=== PATIENT | female | born 1980 | race Hispanic/Latino ===

== ENCOUNTER 2017-02-17 10:03 | Day surgery (SDC) | payer OTHER ==
[2017-02-17 10:15] VITALS: BMI 33.9
[2017-02-17 11:24] LABS: BASO % 0.5 % (0.0-2.0); EOS % 0.6 % (0.0-4.0); HEMATOCRIT 37.1 % (34.0-47.0); LYMPH # 2.2 K/uL (1.0-4.3); LYMPH % 28.9 % (20.0-40.0); MEAN CELL VOLUME 79.4 fl (81.0-99.0); MEAN CORPUSCULAR HEMOGLOBIN 25.8 pg (27.0-31.0); MEAN CORPUSCULAR HGB CONC 32.5 g/dL (33.0-37.0); MEAN PLATELET VOLUME 8.9 fl (7.2-11.7); MONO # 0.5 K/uL (0.0-0.8); MONO % 6.6 % (0.0-10.0); NEUT # 4.7 K/uL (1.8-7.0); NEUT % 63.4 % (50.0-75.0); RED CELL DISTRIBUTION WIDTH 14.4 % (11.5-14.5); WHITE BLOOD COUNT 7.4 K/uL (4.8-10.8)
[2017-02-17] MEDS ORDERED: Propofol 10 mg/ml Inj (20 ML) ONE ×2 (15:34→18:37)
[2017-02-17] MEDS ORDERED: Midazolam 2 MG/2 ML VIAL ONE (15:35)
[2017-02-17] MEDS ORDERED: Rocuronium 10 mg/ml (5 ml) ONE (15:36)
[2017-02-17] MEDS ORDERED: Lidocaine 1% Inj (20ml) ONE (16:19)
[2017-02-17] MEDS ORDERED: Bupivacaine 0.5% Inj(30mL) ONE (16:20)
[2017-02-17] MEDS ORDERED: Lactated Ringer's 1,000 ML IV ONE ×2 (17:14)
[2017-02-17] MEDS ORDERED: Dexamethasone 4 mg/1 ml ONE (17:49)
[2017-02-17] MEDS ORDERED: Bupivacaine 0.5% 50 ML IJ ONE (17:50)
[2017-02-17] MEDS ORDERED: Neostigmine Methylsulfate 2 MG/2 ML ML IV ONE (18:31)
[2017-02-17] MEDS ORDERED: Neostigmine Methylsulfate 3mg/3ml Syringe IV ONE (18:31)
[2017-02-17] MEDS ORDERED: Oxycodone/Acetaminophen 5/325 mg Tab PO PRN (18:55)
[2017-02-17] MEDS ORDERED: Lactated Ringer's 1,000 ML IV SCH (20:11)
[2017-02-17 20:24] VITALS: RESP 20
[2017-02-17 21:37] VITALS: BP 141/80; PULSE 98; TEMP 99.7; O2SAT 98
--- NOTE | 2017-02-18 22:50 | OP ---
PROCEDURE DATE: 02/17/2017 SURGEON: Aron Read MD [employer] ATTENDANT: Lino Mai MD, and Oxana Puckett PA-C ANESTHESIA: General endotracheal. ESTIMATED BLOOD LOSS: Minimal. PREOPERATIVE DIAGNOSES: Dysmenorrhea, dyspareunia, pelvic pain, bladder pain, pelvic endometriosis. POSTOPERATIVE DIAGNOSES: Dysmenorrhea, dyspareunia, pelvic pain, bladder pain, pelvic endometriosis stage II to III and pelvic adhesions. PROCEDURE PERFORMED: Cystoscopy with bilateral ureteral catheterization, retrograde injection of IC green into the right and left ureter, diagnostic hysteroscopy, laparoscopy, robotic [place]ilia excision of endometriosis, ovariolysis, bilateral ureterolysis, vaporization of endometriosis, and to be dictated separately by Dr. Lino Mai is a lysis of adhesions. SAMPLES: Multiple samples of endometriosis containing tissue sent to pathology. BRIEF HISTORY: The patient is a 36-year-old with a history of dysmenorrhea, dyspareunia, pelvic pain, and bladder pain. The patient had a history of multiple abdominal surgery including 3 operations for bariatric surgery and a laparoscopy as well for endometriosis. She had persistent symptoms, and she also had immunological findings suggestive of endometriosis. Prior to the surgery, the patient was counseled with regards to the risks and benefits of the procedure. We reviewed the likelihood of the procedure in identifying the causes of problem and the likelihood of successful outcome, and alternative modalities. Given the complicated nature of the surgery and the complicated patient's history of multiple prior surgery, the patient understood there was risk of bleeding, hemorrhaging, bowel and bladder injury, and injury to the urethra. She also understood that she will require a ureteral stenting to identify the ureter to facilitate the surgery with the robotic procedure. DESCRIPTION OF PROCEDURE: After obtaining the patient's consent, the patient was taken to the OR, and the procedure was begun. Intravenous catheter was placed and antibiotics were administered. Satisfactory anesthesia was induced, and the patient was placed in dorsal lithotomy position after adequate padding was placed in all areas prone to pressure. The external genitalia and abdomen was thoroughly prepped and draped in a standard fashion. A time-out was performed. At this point, the cystoscope was inserted into the bladder under direct vision. A pancystoscopy was performed and attention was paid to both ureteral orifices which were in normal anatomical position. The left ureteral orifice was then catheterized with a [place] open-ended urethral catheter, demetris solution of ICG was then injected for a total of 4 mL into the left distal ureter. At this point, the ureteral catheter was removed. Attention was then to the right ureteral orifice at which point a ureteral catheter was advanced to the level of the right distal ureter. An additional 4 mL of IC green were then injected into the right ureter. The ureteral catheter was then removed. The bladder was inspected and noted to be free of tumors, stones, or bleeding sources. A small amount of cystitis cystica was noted at the level of the introitus. The cystoscope was then removed, and a 16-[place] King catheter was then placed. At this point, attention was in the vaginal area, where a speculum was placed in the vagina. The anterior lip of the cervix was grasped. The uterus was gently dilated, and a hysteroscope was inserted into the uterine cavity which was normal in size and there was no evidence of polyps or fibroids. Both ureteral ostia were visualized. At this point, after placing a Valtchev uterine manipulator in the uterus,attention was on the abdomen. An incision was made below the umbilicus with a standard pen laparoscopy technique, and the abdominal cavity was entered in a blunt fashion with extreme care not to injure any underlying organ or bowel. At this point a trocar was inserted into the abdomen and insufflated. After insufflating the abdominal cavity, the pelvic was visualized and three additional trocars were inserted, left upper quadrant, left mid quadrant, and right upper quadrant. At this point, the da Ana Lilia robot Xi was brought onto the field. The robot was targeted and docked. The pelvis revealed presence of adhesions involving the descending colon which was attached to the left pelvic side wall. Dr. Lino Mai from General Surgery was called in to take down these adhesions, and he did so and he will dictate separately. There was evidence of endometriosis implant, both in the left peritoneal wall and the ovary overlying the ureter, and there was also evidence of endometriosis on the right ovarian fossa and on the posterior aspect of the cervix and the anterior rectal fold. At this point, attention was on the left side where the left ovary was elevated, and a small area of endometriosis was noticed on the left ovary and it was vaporized since it was very superficial. IC green technology was used to identified the left ureter. At this point, the peritoneum was grabbed and incised, and the retroperitoneal space was entered. A progressive dissection was performed lateralizing the ureter in step by step fashion, and once the ureter was lateralized with great preservation of all the vessel, an area of peritoneum was excised containing what appeared to endometriosis tissue. The peritoneum appeared greatly inflamed and thickened. Additionally, at this point, attention was back on the of the uterus in the posterior cervical aspect by the rectovaginal area. An area of endometriosis was identified right at the level of the rectum. This was excised and taken out without injuring the rectum itself and sent to pathology. At this point, attention was on the right side of the pelvis where similarly the ovary was elevated. The retroperitoneum was entered and the ureter was identified utilizing fluorescent technology and lateralized and an area of peritoneum was excised and sent to pathology. At this point, the posterior aspect of the cervix and the uterus which appeared to be greatly inflamed was vaporized progressively utilizing bipolar technology. At this point, the pelvis was extensively irrigated. All the organs appeared to be in excellent shape. There was no damage to the bowel. The robot was undocked. The instruments were removed. The incision was closed in layers with extreme care to avoid the underlying bowel using #0 PDS for the fascia, and 4-0 Monocryl for the skin. At the end of the procedure, all the instrument counts were correct. The patient was taken to recovery room in excellent condition. Aron Read MD [facility]
--- NOTE | 2017-02-28 09:47 | PCM.OP ---
Operative Report - Operative Report Date of Surgery/Procedure: 02/17/17 Time of Surgery/Procedure: 08:00 Surgeon: Dr. Lino Mai Cvor Nurse: Dr. Aron Read Anesthesia/Sedation: general/Dr. Odonnell Pre-Operative Diagnosis: abdominal pain and endometriosis Post-Operative Diagnosis: Abdominal pain and endometriosis with tariq-rectal involvement Indication for Surgery: same Operative Findings: sigmoid adhesions and tariq-rectal endometriosis Procedure/Operation Description: 1-Lysis of sigmoid colon. 2-Excision of tariq- rectal endometriosis. Brief Hsitroy: This 36 year old woman had surgery via the robot by Dr. Aron Read when he encounted adhesions in the sigoid colon and a lesion on the tariq-rectal wall. Intraoperative consutation by general surgery was obtained. Description of the Procedure: Dr. Roro quispe already initiated the robotic proecdure (separate dictation Dr. Read). After taking control of the robotic console the adhesions to the sigmoid colon were lysed using blunt and sharp dissection with the aid of electrocautery. Once the sigmoid colon was lysed the tariq-rectal lesion could be evaluated clearly. Using blunt and sharp dissection with the aid of electrocautery the rectal lesion was incised circumferentially with a small margin of normal tissue. The lesion was lifted from the rectal wall using the smae technique. It was excised en-bloc and after being appropriately marked was sent to pathology as a separate specimen. The rectum was examined and hemostasis was deemed adeqaute. The opertion was then turned over to Dr. Read (separate dictation Dr. Read). Estimated Blood Loss: 5 cc Complications: none Specimen: [id number] endometriosis Discharge & Condition: stable
== END 2017-02-17 21:10 | disposition home or self-care (01) ==
LOC: H.OPSURG 10:03 → H.PEDS 20:59 → H.OPSURG 21:10
PROVIDERS: ATTEND Obstetrics & Gynecology Reproductive Endocrinology
DX: N80.3 Endometriosis of pelvic peritoneum (principal); N94.6 Dysmenorrhea, unspecified; R10.2 Pelvic and perineal pain; R39.89 Other symptoms and signs involving the genitourinary system; N73.6 Female pelvic peritoneal adhesions (postinfective)
CPT/HCPCS: 36415; 45171; 51715; 52005; 58662; 85025; 86850; 86900; 88305; C1729; J0690; J1100; J2001; J2250; J2405; J2704; J2710; J3010; J7030; J7040; J7120